=== PATIENT | male | born 1970 | race Caucasian/White ===

== ENCOUNTER 2017-10-10 05:30 | Day surgery (SDC) | payer BC ==
[~2017-10-10] VITALS: Ht 172.7 cm; Wt 132.7 kg
--- NOTE | ~2017-10-10 | OP ---
PATIENT NAME: ALEC BLISS MEDICAL RECORD: [id number] :66 LOCATION:[facility] ADMISSION DATE: SURGEON: LONI CANALES DO DATE OF OPERATION: 10/10/2017 PROCEDURE: Colonoscopy with biopsies. INDICATIONS FOR PROCEDURE: Diarrhea, gas and bloating, abdominal pain. SCOPE: [email or web address] video pediatric colonoscope. MEDICATIONS: Propofol 550 mg IV per anesthesia. WITHDRAWAL TIME: 16 minutes. ESTIMATED BLOOD LOSS: Minimal. COMPLICATIONS: None. FINDINGS: Informed consent was given. The patient was made comfortable with the above medication. After reaching an adequate level of sedation by slow IV push, the patient was placed on his left side. A digital rectal examination was performed and was normal. The endoscope was then advanced under direct visualization through the rectum to the terminal ileum. The scope was slowly withdrawn and mucosa was carefully examined. Stool was collected during the examination to submit via Ex Taq to rule out infectious causes of symptoms. During the examination, there was evidence of mild diverticulosis consisting of small- and medium-size diverticuli without diverticulitis. This was located in the entire colon. Retroflexion was performed in the rectum with visualization of grade I internal hemorrhoids without bleeding. Throughout the entire colon and in the terminal ileum, there were some very mild changes consistent with inflammation, which could be colitis. There was some loss of vascularity and patchy areas of a nodular surface with some erythema and friability. Random biopsies were taken throughout the colon as well as the rectum with cold forceps. Of note, the prep was not ideal to evaluate the cecum and the ascending colon. Other segments of the bowel were clear. The endoscope was withdrawn from the patient. The patient tolerated the procedure well and there were no complications. IMPRESSION: 1. Mild changes of inflammation in the terminal ileum and the colon, which could be colitis. Biopsies pending. 2. Mild diverticulosis of all segments of the colon. 3. Grade I internal hemorrhoids. PLAN AND RECOMMENDATIONS: 1. Discharge home when recovery parameters are met. 2. High-fiber diet. 3. Supplement diet with 1-2 tablespoons of Metamucil or equivalent psyllium husk fiber daily. 4. Followup biopsy specimen results and consider trial of budesonide therapy pending results of biopsies. 5. Continue current medications. 6. Recall colonoscopy in 2 years due to inadequate prep on the right side of the colon. OPERATIVE REPORT [id number] ALEC BLISS 7. Proceed with upper endoscopy as scheduled. TRANSINT:[id number] Voice Confirmation ID: [id number] DOCUMENT ID: [id number] LONI CANALES DO at 0951 CC: [id number] DICTATION DATE: 10/10/17 0835 INFORMATION TECHNOLOGY TECHNICIAN: 10/10/17 1053 [facility] 10/10/17 [id number] [place] [address]
[~2017-10-10 05:30] MED LIST: BACTRIM 400-801 TAB PO; DILAUDID4 MG PO; DOXYCYCLINE HY100 M2 PO; GLUCOPHAGE1000 MG PO; IBUPROFEN600 MG PO; LANTUS INSULIN10 ML SC; METOPROLOL TART50 MG PO; VASOTEC10 MG PO
[2017-10-10] MEDS ORDERED: JARDIANCE10 MG PO (06:12)
[2017-10-10] MEDS ORDERED: [UNRECOGNIZED DRUG - OTHER] (06:13)
[2017-10-10] MEDS ORDERED: LIPITOR20 MG PO (06:13)
[2017-10-10] MEDS ORDERED: LEVEMIR100 U/M1 SC (06:13)
[2017-10-10] MEDS ORDERED: NEURONTIN 300300 MG PO (06:14)
[2017-10-10 06:21] VITALS: Ht 172.7 cm; Wt 132.7 kg
[2017-10-10 06:34] LABS: BASOPHILS 0.6 % (0-2); EOSINOPHILS 2.9 % (0-7); HEMATOCRIT 49.7 % (42.0-54.0); HEMOGLOBIN 16.8 g/dL (13.5-17.5); IMMATURE GRANULOCYTES 0.8 % (0-5); MCH 29.2 pg (26.0-34.0); MCHC 33.8 g/dL (31.0-37.0); MCV 86.4 fL (80.0-100.0); MEAN PLATELET VOLUME 10.3 fL (7.4-10.4); NEUTROPHILS 55.7 % (40-80); RBC 5.75 10x6/uL (4.20-6.10); RDW 13.4 % (11.5-14.5); WBC 4.8 10x3/uL (4.8-10.8)
[2017-10-10 06:38] LABS: PLATELET COUNT 64 10x3/uL (130-400)
[2017-10-10 07:00] LABS: CALC OSMOLALITY 280 mosm/kg (275-300); CALCIUM 8.3 mg/dL (8.5-10.1); CARBON DIOXIDE 28.2 mmol/L (21.0-32.0); CHLORIDE - SERUM 102 mmol/L (98-107); CREATININE - SERUM 0.8 mg/dL (0.6-1.3); GLUCOSE 182 mg/dL (74-106); SODIUM 138 mmol/L (136-145); UREA NITROGEN 13 mg/dL (7-18); eGFR NON AFRICAN AMERICAN > 90 mL/min (90-120)
[2017-10-10 07:18] LABS: PLATELET ESTIMATE DECREASED; SMUDGE CELLS OCC
== END 2017-10-10 09:40 | disposition home or self-care (01) ==
LOC: D.OPS 05:30
PROVIDERS: Anesthesiology
DX: R19.7 Diarrhea, unspecified (principal); R14.3 Flatulence; R10.9 Unspecified abdominal pain; K64.0 First degree hemorrhoids; I10 Essential (primary) hypertension; E11.9 Type 2 diabetes mellitus without complications; E66.01 Morbid (severe) obesity due to excess calories; G47.30 Sleep apnea, unspecified; Z01.812 Encounter for preprocedural laboratory examination